=== PATIENT | male | born 1990 | race African-American/Black ===

== ENCOUNTER 2019-09-16 03:26 | Emergency (ER) | payer SELFPAY | END 2019-09-16 05:08 | disposition home or self-care (01) | LOC: ERS 03:26 | DX: M54.42 Lumbago with sciatica, left side (principal) | CPT/HCPCS: 99283 ==

== ENCOUNTER 2023-12-23 18:46 | Emergency (ER) | payer SELFPAY ==
[2023-12-23] MEDS ORDERED: Fluorescein Opthalmic Strip ONE (19:39)
[2023-12-23] MEDS ORDERED: Proparacaine 0.5% Opth 15 ML BOT ONE (19:39)
== END 2023-12-23 20:21 | disposition home or self-care (01) ==
LOC: ERS 18:46
DX: S05.01XA Injury of conjunctiva and corneal abrasion without foreign body, right eye, initial encounter (principal); W22.8XXA Striking against or struck by other objects, initial encounter
CPT/HCPCS: 99283